=== PATIENT | male | born 1955 | race Caucasian/White ===

== ENCOUNTER 2020-01-08 17:55 | Emergency (ER) | payer OTHER ==
[~2020-01-08] VITALS: Ht 152.4 cm; Wt 83.0 kg
[2020-01-08] MEDS ORDERED: KETO10TA2 (18:05)
[2020-01-08] MEDS ORDERED: TAMS0.4C (18:05)
[2020-01-08] MEDS ORDERED: KEFLEX500 MG (18:07)
== END 2020-01-08 23:24 | disposition home or self-care (01) ==
LOC: ER 17:55
DX: N20.2 Calculus of kidney with calculus of ureter (principal); R33.8 Other retention of urine

== ENCOUNTER 2020-01-09 08:50 | Outpatient (CLI) | payer OTHER ==
[~2020-01-09 08:50] MED LIST: KEFLEX500 MG; KETO10TA2; TAMS0.4C
== END 2020-01-09 08:55 | disposition home or self-care (01) ==
LOC: RAD 08:50
PROVIDERS: ATTEND Urology
DX: N20.0 Calculus of kidney (principal)

== ENCOUNTER → 2020-01-10 08:35 | Outpatient (CLI) | payer OTHER | END | disposition home or self-care (01) | LOC: LAB 08:35 → RAD 08:35 | PROVIDERS: ATTEND Urology | DX: N20.1 Calculus of ureter (principal); D68.8 Other specified coagulation defects; I10 Essential (primary) hypertension ==

== ENCOUNTER → 2020-01-11 06:00 | Outpatient (CLI) | payer OTHER | END | disposition home or self-care (01) | LOC: LAB 06:00 → EDSTATUS 01-14 07:00 → ADM 01-14 07:00 | PROVIDERS: ATTEND Urology | DX: Z20.828 Contact with and (suspected) exposure to other viral communicable diseases (principal); N20.1 Calculus of ureter ==

== ENCOUNTER → 2020-02-20 | Outpatient (CLI) | payer OTHER | END | disposition home or self-care (01) | LOC: RAD 11:06 | PROVIDERS: ATTEND Urology | DX: N20.1 Calculus of ureter (principal) ==

== ENCOUNTER 2020-03-04 12:11 | Outpatient (CLI) | payer OTHER | END 2020-03-04 12:20 | disposition home or self-care (01) | LOC: LAB 12:11 | PROVIDERS: ATTEND Urology | DX: N20.1 Calculus of ureter (principal) ==

== ENCOUNTER → 2020-03-09 08:04 | Outpatient (CLI) | payer OTHER | END | disposition home or self-care (01) | LOC: LAB 08:04 | PROVIDERS: ATTEND Urology | DX: N20.1 Calculus of ureter (principal) ==

== ENCOUNTER 2022-12-21 08:01 | Outpatient (CLI) | payer OTHER | END 2022-12-21 08:16 | disposition home or self-care (01) | LOC: TOM 08:01 | PROVIDERS: ATTEND Urology | DX: N40.0 Benign prostatic hyperplasia without lower urinary tract symptoms (principal); N28.9 Disorder of kidney and ureter, unspecified ==